=== PATIENT | female | born 1990 | race Caucasian/White ===

== ENCOUNTER 2017-08-14 17:23 | Emergency (ER) | payer BC, OTHER ==
[2017-08-14 17:49] VITALS: BP 137/92
--- NOTE | 2017-08-14 17:53 | UC ---
Throat Pain/Nasal Carlos HPI - HPI Summary HPI Summary: 26 y/o female presents to the urgent care c/o HEADACHE AND LIGHT SENSITIVITY. BLURRED VISION FOR 4 DAYS. DENIES WEAKNESS OF ARMS OR LEGS. NO SLURRED SPEACH. HAS A SORE NECK ON AND OFF WELL. NAUSEA. SAW HER PCP ON THURSDAY, GIVEN MEDROL DOSE PACK. HEADACHE IS WORSE. PT NOT SURE IF SHE HAS HAD A FEVER OR NOT. STATES SHE HAD AN URI WITH A COUGH EARLIER IN THE MONTH. - History of Current Complaint Chief Complaint: UCHeadache Stated Complaint: SINUS/RUBIO Time Seen by Provider: 08/14/17 17:33 Hx Obtained From: Patient Hx Last Menstrual Period: 07/20/17 ?: No Onset/Duration: Gradual Onset, Lasting Weeks - 2 weeks, Still Present, Worse Since - 2 days Severity: Moderate Pain Intensity: 8 Pain Scale Used: 0-10 Numeric Cough: None Associated Signs & Symptoms: Positive: Sinus Discomfort, Nasal Discharge - green , Other - headache w/ photophobia, +PND green. Negative: Fever - Epiglottits Risk Factors Epiglottis Risk Factors: Negative - Allergies/Home Medications Allergies/Adverse Reactions: Allergies Allergy/AdvReac Type Severity Reaction Status Date / Time No Known Allergies Allergy Verified 08/14/17 17:35 Home Medications: Home Medications Fluticasone NASAL SPRAY 50MCG* [Flonase NASAL SPRAY 50MCG*] 2 spray BOTH NARES DAILY 08/14/17 [History Confirmed 08/14/17] Norgestimate-Ethinyl Estradiol [Trinessa Tablet] 1 each PO DAILY 08/14/17 [ History Confirmed 08/14/17] methylPREDNISolone [Medrol Dosepak 4 MG*] 12 mg PO .SEE PRATIK INSTRUCTION [History Confirmed 08/14/17] PMH/Surg Hx/FS Hx/Imm Hx Previously Healthy: Yes - Pt denies PMHX - Surgical History Surgical History: Yes Surgery Procedure, Year, and Place: WISDOM TEETH EXTRACTIONS - Family History Family History: 1-Hypothryrodism - Social History Occupation: Employed Full-time Lives: With Family Alcohol Use: Rare Substance Use Type: None Smoking Status (MU): Never Smoked Tobacco Review of Systems Constitutional: Negative Skin: Negative Eyes: Photophobia ENT: Ear Ache - B/L ear pressure, Nasal Discharge - green, Sinus Congestion, Sinus Pain/Tenderness Respiratory: Negative Cardiovascular: Negative Gastrointestinal: Negative Genitourinary: Negative Motor: Negative Neurovascular: Negative Musculoskeletal: Negative Neurological: Headache Psychological: Negative Is Patient Immunocompromised?: No All Other Systems Reviewed And Are Negative: Yes Physical Exam - Summary Physical Exam Summary: Vitals: reviewed General: Well developed, well-nourished female patient with NAD. Head and face: Normocephalic and atraumatic, Positive tenderness over the frontal and maxillary sinuses.. Eyes: PERRLA, EOMI x 2. Normal conjunctiva. No eye discharge. ENT: Ears and TM with normal limits. Nose: edematous and erythematous nasal mucosa with with yellowish discharge and erythematous mucosa. Pharynx with erythema, no exudate. +PND green in color Neck: Supple, no JVD, no carotid bruits and no lymphadenopathy. Lungs: clear, no rales, no rhonchi, no wheezes. CVS: RRR, S1 and S2 present no murmurs or gallops appreciated. Abdomen: soft nontender with positive bowel sounds. Extremities: no edema noted. Neuro: WNL. Skin: warm and dry Triage Information Reviewed: Yes Vital Signs: Initial Vital Signs Temp 98 F 08/14/17 17:38 Pulse 76 08/14/17 17:38 Resp 18 08/14/17 17:38 BP 137/92 08/14/17 17:38 Pulse Ox 98 08/14/17 17:38 Throat Pain/Nasal Course/Dx - Differential Dx/Diagnosis Differential Diagnosis/HQI/PQRI: Pharyngitis, Sinusitis, Tonsillitis, URI, Other - headache Provider Diagnoses: 1- Acute bacterial sinusitis. 2-Headache. 3- Elevated BP w /o Hx of HTN Discharge - Discharge Plan Condition: Stable Disposition: HOME Prescriptions: Amoxicillin/Clavulanate TAB* [Augmentin TAB 875*] 875 mg PO BID #20 tab Ibuprofen TAB* [Motrin TAB* 800 MG] 800 mg PO Q6H PRN #20 tab PRN Reason: Headache Patient Education Materials: Sinusitis (ED), Acute Headache (ED), Low-Sodium Diet (ED) Referrals: Elena Mariano MD [Primary Care Provider] - 3 Days Additional Instructions: 1- Please increase fluid intake and rest. take full course of antibiotic to avoid resistance 2-Continue using Flonase nasal spray as directed to help drain fluid. Also buy saline drops to clear sinuses 3- Continue taking Medrol dose pratik as directed by your PCP to alleviates sinus congestion 4- Take Ibuprofen PO q6-8hrs prn starting tomorrow after meals to alleviate headache. 5-Return to the clinic or PCP in 3 days if symptoms do not improve for further management and treatment 6-Your BP is border line elevated today. please decrease salt in your diet, monitor BP and if it continues to be elevated please f/u with your PCP for further management - Billing Disposition and Condition Condition: STABLE Disposition: HOME
[2017-08-14] MEDS ORDERED: Ketorolac INJ* 30 MG/ML 1 ML VIAL IM ONE (18:04)
== END 2017-08-14 18:41 | disposition home or self-care (01) ==
LOC: UCCORT 17:23
DX: J01.90 Acute sinusitis, unspecified (principal); B96.89 Other specified bacterial agents as the cause of diseases classified elsewhere; R03.0 Elevated blood-pressure reading, without diagnosis of hypertension; H53.8 Other visual disturbances; R11.0 Nausea
CPT/HCPCS: 96372; 99202; G0463; J1885